=== PATIENT | female | born 1995 | race Caucasian/White ===

== ENCOUNTER 2017-11-17 07:08 | Outpatient (CLI) | payer BC ==
[2017-11-17 08:53] LABS: BASOPHILS % (AUTO) 0.5 % (0.0-2.0); EOSINOPHILS # (AUTO) 0.1 /CMM (0.0-0.7); EOSINOPHILS % (AUTO) 1.2 % (0.0-6.0); HEMATOCRIT 41 % (33-45); HEMOGLOBIN 13.9 g/dL (11.5-14.8); LYMPHOCYTES # (AUTO) 2.6 /CMM (0.8-4.8); LYMPHOCYTES % (AUTO) 34.7 % (20.0-44.0); MEAN CORPUSCULAR HEMOGLOBIN 29 PG (26.0-33.0); MEAN CORPUSCULAR HGB CONC 34 g/dl (31.0-36.0); MEAN CORPUSCULAR VOLUME 86 fL (82-100); MONOCYTES # (AUTO) 0.4 /CMM (0.1-1.30); MONOCYTES % (AUTO) 5.6 % (2.0-12.0); NEUTROPHILS # (AUTO) 4.4 /CMM (1.8-8.9); PLATELET COUNT (AUTO) 315 /CMM (150-450); RED BLOOD CELL COUNT(AUTO) 4.74 MIL/uL (4.0-5.2); WHITE BLOOD COUNT (AUTO) 7.6 K/uL (4.3-11.0)
[2017-11-17 08:59] LABS: ALBUMIN 3.9 g/dL (3.4-5.0); BILIRUBIN,TOTAL 0.4 mg/dL (0.2-1.0); CALCIUM, SERUM 9.2 mg/dL (8.5-10.1); CREATININE 0.7 mg/dL (0.6-1.3); TOTAL PROTEIN, SERUM 7.9 g/dL (6.4-8.2)
[2017-11-17 09:04] LABS: APPEARANCE,URINE CLOUDY (CLEAR); BILIRUBIN,URINE NEGATIVE (NEGATIVE); BLOOD, URINE TRACE-INTA Ery/uL (NEGATIVE); COLOR,URINE YELLOW (YELLOW); FREE T4 (FREE THYROXINE) 1.36 ng/dL (0.76-1.46); KETONES,URINE NEGATIVE (NEGATIVE); LEUKOCYTE ESTERASE ,URINE 3+ (NEGATIVE); NITRITE, URINE NEGATIVE (NEGATIVE); PH,URINE 5.5 (5.0-8.0); PROTEIN,URINE NEGATIVE (NEGATIVE); THYROID STIMULATING HORMONE 2.42 uIU/mL (0.358-3.74); UGLUCOSE NEGATIVE (NEGATIVE); UROBILINOGEN,URINE 0.2 EU/dL (0.2)
[2017-11-17 09:08] LABS: BACTERIA,URINE Few /HPF (None Seen); WBC,URINE 21-50 /HPF (0-3)
[2017-11-17 09:09] LABS: SQUAMOUS EPITHELIAL CELL,UR Moderate /HPF (None Seen)
[2017-11-18 08:08] LABS: *TESTOSTERONE, SERUM 42 ng/dL (8-48); PROLACTIN 21.9 ng/mL (4.8-23.3)
[2017-11-19 19:07] LABS: *TESTOSTERONE, FREE (DIRECT) 2.5 pg/mL (0.0-4.2)
== END 2017-11-17 23:59 | disposition home or self-care (01) ==
LOC: LAB 07:08
PROVIDERS: ATTEND Family Medicine
DX: Z00.01 Encounter for general adult medical examination with abnormal findings (principal); R79.89 Other specified abnormal findings of blood chemistry; R82.99 Other abnormal findings in urine
CPT/HCPCS: 36415; 80053-TC; 80061-TC; 81000-TC; 82306; 84146; 84402; 84403; 84439-TC; 84443-TC; 85025-TC; 87086-TC

== ENCOUNTER 2018-01-09 09:02 | Outpatient (CLI) | payer BC ==
[2018-01-11 05:12] LABS: FOLLICLE STIMULATION HORMONE 5.8 mIU/mL (.); LUTEINIZING HORMONE 11.1 mIU/mL (.)
== END 2018-01-09 23:59 | disposition home or self-care (01) ==
LOC: US 09:02
PROVIDERS: ATTEND Family Medicine
DX: N92.6 Irregular menstruation, unspecified (principal)
CPT/HCPCS: 36415; 76856-TC; 83001; 83002; 86337

== ENCOUNTER 2018-07-31 07:01 | Outpatient (CLI) | payer BC ==
[2018-07-31 08:38] LABS: ALBUMIN 3.9 g/dL (3.4-5.0); BILIRUBIN,TOTAL 0.3 mg/dL (0.2-1.0); CALCIUM, SERUM 8.8 mg/dL (8.5-10.1); CREATININE 0.8 mg/dL (0.6-1.3); TOTAL PROTEIN, SERUM 7.8 g/dL (6.4-8.2)
[2018-07-31 08:49] LABS: THYROID STIMULATING HORMONE 3.127 uIU/mL (0.358-3.74)
[2018-07-31 09:01] LABS: BASOPHILS # (AUTO) 0.1 /CMM (0.0-0.2); BASOPHILS % (AUTO) 1.2 % (0.0-2.0); EOSINOPHILS % (AUTO) 1.2 % (0.0-6.0); HEMATOCRIT 38 % (33-45); HEMOGLOBIN 13.4 g/dL (11.5-14.8); LYMPHOCYTES # (AUTO) 2.1 /CMM (0.8-4.8); LYMPHOCYTES % (AUTO) 29.9 % (20.0-44.0); MEAN CORPUSCULAR HEMOGLOBIN 31 PG (26.0-33.0); MEAN CORPUSCULAR HGB CONC 36 g/dl (31.0-36.0); MEAN CORPUSCULAR VOLUME 87 fL (82-100); MONOCYTES # (AUTO) 0.4 /CMM (0.1-1.30); MONOCYTES % (AUTO) 6.3 % (2.0-12.0); NEUTROPHILS # (AUTO) 4.4 /CMM (1.8-8.9); NEUTROPHILS % (AUTO) 61.4 % (43.0-81.0); PLATELET COUNT (AUTO) 295 /CMM (150-450); RDW COEFFICIENT OF VARIATION 12.3 (11.5-15.0); WHITE BLOOD COUNT (AUTO) 7.1 K/uL (4.3-11.0)
== END 2018-07-31 23:59 | disposition home or self-care (01) ==
LOC: LAB 07:01
PROVIDERS: ATTEND Family Medicine
DX: N92.6 Irregular menstruation, unspecified (principal); E55.9 Vitamin D deficiency, unspecified; E66.01 Morbid (severe) obesity due to excess calories
CPT/HCPCS: 80053-TC; 80061-TC; 82652; 84436-TC; 84443-TC; 85025-TC

== ENCOUNTER 2019-03-26 08:48 | Outpatient (CLI) | payer BC ==
[2019-03-26] MEDS ORDERED: GADODIAMIDE 5 MMOL/10 ML VIAL IJ ONE (08:49)
== END 2019-03-26 23:59 | disposition home or self-care (01) ==
LOC: MRI 08:48
PROVIDERS: ATTEND Family Medicine
DX: M48.8X2 Other specified spondylopathies, cervical region (principal)
CPT/HCPCS: 70553; 72156; A9579

== ENCOUNTER 2019-12-10 16:25 | Outpatient (CLI) | payer BC ==
[2019-12-10 18:18] LABS: BASOPHILS % (AUTO) 0.2 % (0.0-2.0); EOSINOPHILS % (AUTO) 1.4 % (0.0-6.0); HEMATOCRIT 41 % (33-45); HEMOGLOBIN 13.9 g/dL (11.5-14.8); LYMPHOCYTES # (AUTO) 2.7 /CMM (0.8-4.8); LYMPHOCYTES % (AUTO) 25.8 % (20.0-44.0); MEAN CORPUSCULAR HGB CONC 34 g/dl (31.0-36.0); MEAN CORPUSCULAR VOLUME 87 fL (82-100); MONOCYTES # (AUTO) 0.6 /CMM (0.1-1.30); MONOCYTES % (AUTO) 5.5 % (2.0-12.0); NEUTROPHILS # (AUTO) 6.9 /CMM (1.8-8.9); NEUTROPHILS % (AUTO) 67.1 % (43.0-81.0); PLATELET COUNT (AUTO) 299 /CMM (150-450); RED BLOOD CELL COUNT(AUTO) 4.77 MIL/uL (4.0-5.2); WHITE BLOOD COUNT (AUTO) 10.3 K/uL (4.3-11.0)
[2019-12-10 18:43] LABS: THYROID STIMULATING HORMONE 1.378 uIU/mL (0.358-3.74)
[2019-12-11 11:11] LABS: FOLLICLE STIMULATION HORMONE 6.7 mIU/mL (.)
== END 2019-12-10 23:59 | disposition home or self-care (01) ==
LOC: LAB 16:25
PROVIDERS: ATTEND Family Medicine
DX: N92.6 Irregular menstruation, unspecified (principal)
CPT/HCPCS: 36415; 82627; 83001; 83002; 84146; 84439-TC; 84443-TC; 85025-TC; 86337

== ENCOUNTER 2020-03-17 09:44 | Outpatient (CLI) | payer BC ==
[2020-03-17 10:46] LABS: CREATININE 0.6 mg/dL (0.6-1.3)
== END 2020-03-17 23:59 | disposition home or self-care (01) ==
LOC: LAB 09:44
PROVIDERS: ATTEND Family Medicine
DX: S14.119A Complete lesion at unspecified level of cervical spinal cord, initial encounter (principal); X58.XXXA Exposure to other specified factors, initial encounter; Y93.89 Activity, other specified; Y92.89 Other specified places as the place of occurrence of the external cause; Y99.8 Other external cause status
CPT/HCPCS: 36415; 82565-TC; 84520-TC

== ENCOUNTER 2020-03-18 09:26 | Outpatient (CLI) | payer BC ==
[2020-03-18] MEDS ORDERED: GADOTERIDOL 279.3 MG/ML VIAL IV ONE ×2 (09:27)
== END 2020-03-18 23:59 | disposition home or self-care (01) ==
LOC: MRI 09:26
PROVIDERS: ATTEND Family Medicine
DX: S14.119A Complete lesion at unspecified level of cervical spinal cord, initial encounter (principal); M25.78 Osteophyte, vertebrae; X58.XXXA Exposure to other specified factors, initial encounter; Y93.89 Activity, other specified; Y92.89 Other specified places as the place of occurrence of the external cause; Y99.8 Other external cause status
CPT/HCPCS: 72156; A9579

== ENCOUNTER 2020-06-01 00:17 | Emergency (ER) | payer BC, OTHER ==
[~2020-06-01] VITALS: Ht 149.9 cm; Wt 80.3 kg
[2020-06-01 00:39] VITALS: BP 121/75
--- NOTE | 2020-06-01 01:10 | NUR ---
covid swab sample taken and sent to the lab.
--- NOTE | 2020-06-01 23:39 | NUR ---
COVID-19 NEGATIVE PER LAB [facility]
== END 2020-06-01 01:11 | disposition home or self-care (01) ==
LOC: ER 00:18
DX: Z03.818 Encounter for observation for suspected exposure to other biological agents ruled out (principal)
CPT/HCPCS: 99283; C9803; U0003

== ENCOUNTER 2020-09-02 04:53 | Outpatient (CLI) | payer BC, OTHER | END 2020-09-02 23:59 | disposition home or self-care (01) | LOC: RAD 04:53 | PROVIDERS: ATTEND Family Medicine | DX: R05 Cough (principal) | CPT/HCPCS: 71046 ==

== ENCOUNTER 2021-09-09 07:39 | Emergency (ER) | payer BC, OTHER ==
[~2021-09-09] VITALS: Ht 149.9 cm; Wt 81.6 kg
[2021-09-09 07:41] VITALS: BP 128/88
[2021-09-09] MEDS ORDERED: AMOX500C2 PO (07:47)
[2021-09-09] MEDS ORDERED: METH4TAB3 PO (07:47)
--- NOTE | 2021-09-09 16:16 | NUR ---
PT CALLED COVID RESULT GIVEN NEGATIVE (-)
== END 2021-09-09 07:55 | disposition home or self-care (01) ==
LOC: ER 07:40
DX: J02.9 Acute pharyngitis, unspecified (principal); Z20.822 Contact with and (suspected) exposure to COVID-19
CPT/HCPCS: 87070; 87426; 87880; 99283; C9803; 86403-TC

== ENCOUNTER 2022-11-02 16:36 | Outpatient (CLI) | payer BC, OTHER ==
[~2022-11-02 16:36] MED LIST: AMOX500C2 PO; METH4TAB3 PO
== END 2022-11-02 23:59 | disposition home or self-care (01) ==
LOC: CT 16:36
PROVIDERS: ATTEND Family Medicine
DX: R51.9 Headache, unspecified (principal)
CPT/HCPCS: 70450-TC; 70486-TC

== ENCOUNTER 2022-11-03 07:56 | Outpatient (CLI) | payer BC, OTHER ==
[2022-11-03 09:04] LABS: BASOPHILS % (AUTO) 0.3 % (0.0-2.0); HEMATOCRIT 38 % (33-45); HEMOGLOBIN 12.5 g/dL (11.5-14.8); LYMPHOCYTES # (AUTO) 2.4 K/uL (0.8-4.8); LYMPHOCYTES % (AUTO) 29.4 % (20.0-44.0); MEAN CORPUSCULAR HGB CONC 33 g/dl (31.0-36.0); MEAN CORPUSCULAR VOLUME 89 fL (82-100); MONOCYTES # (AUTO) 0.4 K/uL (0.1-1.30); MONOCYTES % (AUTO) 5.5 % (2.0-12.0); NEUTROPHILS # (AUTO) 5.2 K/uL (1.8-8.9); NEUTROPHILS % (AUTO) 63.8 % (43.0-81.0); PLATELET COUNT (AUTO) 292 K/uL (150-450); RED BLOOD CELL COUNT(AUTO) 4.29 MIL/uL (4.0-5.2); WHITE BLOOD COUNT (AUTO) 8.1 K/uL (4.3-11.0)
[2022-11-03 09:54] LABS: THYROID STIMULATING HORMONE 2.677 uIU/mL (0.358-3.74)
[2022-11-03 10:08] LABS: ALBUMIN 3.3 g/dL (3.4-5.0); BILIRUBIN,TOTAL 0.2 mg/dL (0.2-1.0); CALCIUM, SERUM 8.4 mg/dL (8.5-10.1); CREATININE 0.6 mg/dL (0.6-1.3); POTASSIUM 3.8 mmol/L (3.5-5.1); TOTAL PROTEIN, SERUM 7.1 g/dL (6.4-8.2)
[2022-11-04 07:06] LABS: PROLACTIN 26.1 ng/mL (4.8-23.3)
== END 2022-11-03 23:59 | disposition home or self-care (01) ==
LOC: LAB 07:56
PROVIDERS: ATTEND Family Medicine
DX: R51.9 Headache, unspecified (principal)
CPT/HCPCS: 36415; 80053-TC; 82306; 82607-TC; 84146; 84439-TC; 84443-TC; 85025-TC

== ENCOUNTER 2022-11-13 13:23 | Emergency (ER) | payer BC, OTHER ==
[~2022-11-13] VITALS: Ht 149.9 cm; Wt 86.2 kg
[2022-11-13 13:40] VITALS: BP 145/86
--- NOTE | 2022-11-13 14:00 | NUR ---
Reclining in [facility] NO obvious distress
[2022-11-13] MEDS ORDERED: METH750T3 PO (14:46)
[2022-11-13] MEDS ORDERED: ACETAMINOPHEN ES 500 MG TABLET ONE (14:58)
[2022-11-13] MEDS ORDERED: ACETAMINOPHEN ES 500 MG TABLET PO ONE (15:00)
--- NOTE | 2022-11-13 15:02 | NUR ---
Patient discharged to home in stable condition. Written and verbal after care instructions given. Patient verbalizes understanding of instruction.
== END 2022-11-13 15:02 | disposition home or self-care (01) ==
LOC: ER 13:28
DX: M54.2 Cervicalgia (principal); M43.6 Torticollis; Z79.899 Other long term (current) drug therapy

== ENCOUNTER 2022-11-15 09:39 | Outpatient (CLI) | payer BC, OTHER ==
[~2022-11-15 09:39] MED LIST changes: +METH750T3 PO
[2022-11-15] MEDS ORDERED: GADOTERATE MEGLUMINE 10 MMOL/20 ML VIAL IV ONE (14:25)
[2022-11-15] MEDS ORDERED: ONDA4TAB5 PO (19:01)
== END 2022-11-15 23:59 | disposition home or self-care (01) ==
LOC: MRI 09:39
PROVIDERS: ATTEND Family Medicine
DX: M50.822 Other cervical disc disorders at C5-C6 level (principal); R89.1 Abnormal level of hormones in specimens from other organs, systems and tissues
CPT/HCPCS: 72141; 70553; A9575

== ENCOUNTER 2022-11-15 15:32 | Emergency (ER) | payer BC, OTHER ==
[~2022-11-15] VITALS: Ht 149.9 cm; Wt 86.2 kg
--- NOTE | 2022-11-15 15:50 | NUR ---
BIBS. SENT BY DR. [email or web address] FOR ABNORMAL MRI RESULTS THIS AM. PT IS ASYMPTOMATIC. TO ER BED 14.
--- NOTE | 2022-11-15 17:30 | NUR ---
URINE SAMPLE COLLECTED AND SENT TO LAB
[2022-11-15] MEDS ORDERED: ONDA4TAB5 PO (19:01)
[2022-11-15 19:08] VITALS: BP 131/68
--- NOTE | 2022-11-15 19:08 | NUR ---
Patient discharged to home in stable condition. Written and verbal after care instructions given. Patient verbalizes understanding of instruction.
== END 2022-11-15 19:11 | disposition home or self-care (01) ==
LOC: ER 15:35
DX: R51.9 Headache, unspecified (principal); Z79.899 Other long term (current) drug therapy; Z85.841 Personal history of malignant neoplasm of brain